=== PATIENT | female | born 2005 | race African-American/Black ===

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

== ENCOUNTER 2023-11-26 17:43 | Emergency (ER) | payer OTHER ==
[2023-11-26 18:13] VITALS: BP 122/66; PULSE 85; RESP 16; TEMP 98.6; BMI 24.5
[2023-11-26 19:14] LABS: THROAT:GRP A STREP DETECTED (NOTDETECTED)
[2023-11-26] MEDS ORDERED: AMOXICILLIN 250 MG CAPSULE ONE (19:35)
[2023-11-26] MEDS ORDERED: ACETAMINOPHEN 500 MG TABLET (FP) ONE (19:36)
[2023-11-26] MEDS: ACETAMINOPHEN 500 MG TABLET (FP) PO ONE (19:44)
[2023-11-26] MEDS: AMOXICILLIN 500 MG CAPSULE (FP) PO ONE (19:44)
== END 2023-11-26 19:45 | disposition home or self-care (01) ==
LOC: JERFT 17:43 → JER 17:43 → JERFT 19:45
DX: J02.0 Streptococcal pharyngitis (principal); Z20.822 Contact with and (suspected) exposure to COVID-19
CPT/HCPCS: 0241U-QW; 36415; 87651; 99283-25